=== PATIENT | male | born 1970 | race Caucasian/White ===

== ENCOUNTER 2019-06-25 03:48 | Emergency (ER) | payer SELFPAY ==
[2019-06-25 03:56] VITALS: BP 151/87; PULSE 75; RESP 16; TEMP 36.6; O2SAT 97; BMI 33.3
--- NOTE | 2019-06-25 03:58 | DI.CT.S_ITS ---
PROCEDURE: CT KIDNEY URETER BLADDER (KUB) INDICATIONS: left flank pain, radiates to groin TECHNIQUE: Noncontrast 5 mm thick sections acquired from the diaphragms to the symphysis. 5 mm thick coronal and sagittal reformats were then performed. For radiation dose reduction, the following was used: automated exposure control, adjustment of mA and/or kV according to patient size. COMPARISON: None. FINDINGS: Image quality: Excellent. Lung bases: Lung bases are clear. Heart size is normal. Urinary system: There is a 1-2 mm obstructing stone seen involving the left ureterovesicular junction, as on series 2 image 91 and on series 4 image 42. There is associated mild left-sided hydroureter and hydronephrosis. Minimal left-sided perinephric fat stranding can be seen. No nonobstructing kidney stones are seen. Both kidneys are normal in size. Bladder wall thickness is normal; no calcified bladder stones. Other solid organs: Liver is normal in size. Gallbladder demonstrates no significant noncontrast abnormality. Pancreas is normal in contours. Spleen is normal in size. No adrenal nodules. Peritoneum and bowel: Unenhanced bowel loops demonstrate normal wall thickness and caliber. No free fluid or air. Incidental note is made of a normal-appearing appendix. Diverticulosis is seen, without findings of active diverticulitis. Nodes and vessels: No retroperitoneal or mesenteric adenopathy by size criteria. Aorta and inferior vena cava are normal in caliber. Abdominal wall: No ventral hernias. Pelvis: No free pelvic fluid. No inguinal adenopathy. Bilateral fat containing inguinal hernias are seen, left greater than right. Bones: No suspicious bony lesions. No vertebral body compression fractures. Age-appropriate bony degenerative changes are seen. IMPRESSION: There is a 1-2 mm obstructing stone seen at the left ureterovesicular junction, with associated left-sided hydroureter, hydronephrosis, and perinephric fat stranding. No nonobstructing kidney stones are seen. Incidental note is made of: Normal appendix Mild sigmoid diverticulosis, without findings of active diverticulitis Fat-containing bilateral inguinal hernias, left worse than right. Note: No significant discrepancy from the preliminary report. Dictated by: Gildardo Caba M.D. on 06/25/2019 at 8:59 Approved by: Gildardo Caba M.D. on 06/25/2019 at 9:03
--- NOTE | 2019-06-25 03:59 | ED_ITS ---
HPI - Male Genitourinary General Chief complaint: Urogenital-Male Stated complaint: Lower back pain Time Seen by Provider: 06/25/19 03:53 Source: patient Mode of arrival: Ambulatory Limitations: no limitations History of Present Illness HPI Narrative: This is a 49-year-old male comes emergency department with compla int of left flank pain that is radiating to the left testicle. Patient states that started yesterday it became more intense today. It has been constant. Sort of waxing and waning in intensity. Patient was quite anti uncomfortable when was its maximum intensity. [place] very nauseated. He has not vomited. He has been having normal bowel movements. He has noticed some increase in frequency and nocturia but no dysuria, urgency or hesitancy. Patient has not noticed any hematuria. No fevers. Denies any medical issues, no prior surgeries. No allergies to medications. He does take some nrav-ldb-hapkkdt supplements. Related Data Previous Rx's Medication Instructions Recorded hydrocodone-acetaminophen [Robertson] 1 tab PO Q6H PRN #10 tab 06/25/19 tamsulosin [Flomax] 0.4 mg PO DAILY #7 cap 06/25/19 Allergies Allergy/AdvReac Type Severity Reaction Status Date / Time No Known Drug Allergies Allergy Verified 06/25/19 04:22 Review of Systems Review of Systems ROS Unobtainable: All systems reviewed & are unremarkable except as noted in HPI and below Exam Narrative Exam Narrative: GENERAL: Alert and oriented x three, male in [id number] distress HEENT: Head normocephalic, atraumatic, EOMI, pupils reactive, face symmetric, moist mucous membranes NECK: Supple, full range of motion CARDIOVASCULAR: Regular rate and rhythm without murmurs, rubs or gallops. RESPIRATORY: Breath sounds equal bilaterally, no wheezes rales or rhonchi. ABDOMEN: Soft, nontender. Normoactive bowel sounds all 4 quadrants. No guardin g or rebound, rigidity, no mass : Mild left CVA tenderness EXTREMITIES: Normal range of motion, no clubbing or edema. Neurovascularly intact NEUROLOGICAL: Cranial nerves II through XII grossly intact. Moving all extremities SKIN: Warm, dry, no petechiae, no rashes or lesions. Initial Vital Signs Initial Vital Signs: Vital Signs Temperature 97.8 F 06/25/19 03:56 Pulse Rate 75 06/25/19 03:56 Respiratory Rate 16 06/25/19 03:56 Blood Pressure 151/87 H 06/25/19 03:56 Pulse Oximetry 97 06/25/19 03:56 Course Orders Ordered: ED Orders 06/25/19 03:58 CT kidney ureter bladder (KUB) Stat 06/25/19 04:00 Complete Blood Count AUTO DIFF Stat Comprehensive Metabolic Panel Stat Lipase Stat 06/25/19 05:12 Urinalysis and Microscopic Stat Discontinued Medications Hydrocodone Bitart/Acetaminophen (Vicodin 5/325 Prepack) 1 bottle MISC SEEINSTR ONE Stop: 06/25/19 05:36 Last Admin: 06/25/19 05:41 Dose: 1 bottle Documented by: JAZZY Sodium Chloride (Normal Saline 0.9%) 1,000 mls @ 1,000 mls/hr IV BOLUS ONE Stop: 06/25/19 04:57 Last Infusion: 06/25/19 05:15 Dose: 0 mls/hr Documented by: Admin: 06/25/19 04:13 Dose: 1,000 mls/hr Documented by: MARGUERITE Ketorolac Tromethamine (Toradol) 30 mg IV NOW ONE Stop: 06/25/19 03:59 Last Admin: 06/25/19 04:13 Dose: 30 mg Documented by: MARGUERITE Tamsulosin HCl (Flomax) 0.4 mg PO NOW ONE Stop: 06/25/19 05:36 Last Admin: 06/25/19 05:41 Dose: 0.4 mg Documented by: JAZZY Vital Signs Vital signs: Vital Signs - 8 hr 06/25/19 03:56 06/25/19 05:51 Temperature 97.8 F Pulse Rate 75 76 Respiratory Rate 16 16 Blood Pressure 151/87 H 144/72 H Pulse Oximetry 97 97 MDM - Male Genitourinary Lab Data Attestation: I reviewed the patient's lab results. Result diagrams: 06/25/19 04:00 06/25/19 04:00 Labs: Lab Results 06/25/19 06/25/19 06/25/19 Range/Units 04:00 04:00 05:12 WBC 11.2 H (4.5-11.0) X10^3/uL RBC 5.13 (4.5-5.9) X10^6/uL Hgb 15.9 (13.5-17.5) g/dL Hct 46.4 (41-53) % MCV 90.5 (80-100) fL MCH 30.9 (26-34) PG MCHC 34.2 (30-36) % RDW 14.1 (11.6-14.8) % Plt Count 195 (150-400) X10^3/uL Neut % (Auto) 68.1 (50-75) % Lymph % (Auto) 19.8 L (25-40) % [place] % (Auto) 7.6 (3-14) % Eos % (Auto) 3.7 (2-4) % Baso % (Auto) 0.8 (0-2) % Neut # (Auto) 7600 H (9483-8829) /uL Lymph # (Auto) 2200 (1931-0920) /uL [place] # (Auto) 900 (0-900) /uL Eos # (Auto) 400 (0-450) /uL Baso # (Auto) 100 (0-100) /uL Sodium 143 (137-145) mmol/L Potassium 4.0 (3.4-5.1) mmol/L Chloride 109 H (98-107) mmol/L Carbon Dioxide 24 (22-32) mmol/L BUN 19 (9-20) mg/dL Creatinine 1.10 (0.66-1.25) mg/dL Estimated GFR > 60.0 (>60) mL/min BUN/Creatinine Ratio 17.3 (6-22) Glucose 139 H (70-100) mg/dL Calcium 9.6 (8.4-10.2) mg/dL Total Bilirubin 0.4 (0.2-1.3) mg/dL AST 18 (17-59) IU/L ALT 25 (<50) IU/L Alkaline Phosphatase 56 (38-126) U/L Total Protein 7.1 (6.3-8.2) g/dL Albumin 4.2 (3.5-5.0) g/dL Globulin 2.9 (1.7-4.1) g/dL Albumin/Globulin Ratio 1.4 (1.0-2.8) Lipase 126 (23-300) U/L Urine Color Yellow Urine Appearance Clear Urine pH 5.5 (4.5-8.0) Ur Specific [place] 1.015 (1.000-1.035) Urine Protein Negative (Negative) Urine Glucose (UA) Negative (Negative) g/dL Urine Ketones Negative (NEGATIVE) Urine Occult Blood 3+ H (Negative) Urine Nitrate Negative (Negative) Urine Bilirubin Negative (NEGATIVE) Urine Urobilinogen 0.2 (0.2) E.U./dL Ur Leukocyte Esterase Negative (NEGATIVE) Urine RBC 10-30/hpf H (0-5/HPF) Urine WBC None seen (0-5/HPF) Urine Bacteria None seen (None) Ur Culture Indicated? Cult not indicated Imaging Data CT scan - abdomen: Radiologist's impression: 7 mm obstructing stone at the left ureterovesicular junction. Mild left hydroureteronephrosis. Punctate calcification near the right ureterovesical junction within the bladder lumen. Sigmoid diverticulosis. Fat containing inguinal hernias left larger than right without inflammation. MDM Narrative Medical decision making narrative: Patient's urine shows hematuria but no signs of infection, symptoms and CT or consistent with a left kidney stone. 7 mm at the ureteral vesicular junction. Patient has normal renal function, he has a white count of 11. Patient was feeling much improved after Toradol, states pain is about 3-4/10 at this point. We discussed findings the potential that this stone might not passed based on its size although it is quite close to the bladder. Give him referral for Urology, strict return precautions. Plan for ibuprofen and Robertson for breakthrough pain. patient was also given a dose of Flomax and a prescription for 1 week. We discussed that if they stone does not pass he will need to see Urology possibly for lithotripsy. All questions were answered and patient is comfortable with plan. Discharge Plan Departure Patient Disposition: Home Clinical Impression: Kidney stone Discharge Date/Time: 06/25/19 05:51 Instructions: DI for Kidney Stones Activity Restrictions/Additional Instructions: Follow up with primary care or urology in the several days for recheck. Call for an appointment. Take flomax once daily. You may take ibuprofen up to 800mg every 8 hours for pain. Take pain medication as prescribed. This medication can make you sleepy, do not drive, perform hazardous activities or make any major decisions while taking it. Return to the ER for fevers greater than 100.4F, rapidly worsening abdominal or flank pain, passing out, persistent vomiting, inability to urinate or other new or concerning symptoms. Prescriptions: New tamsulosin [Flomax] 0.4 mg capsule 0.4 mg PO DAILY Qty: 7 RF: 0 hydrocodone-acetaminophen [Robertson] 5-325 mg tablet 1 tab PO Q6H PRN (Reason: pain) Qty: 10 RF: 0 Referrals: Kwasi Molina MD [Non-Staff] -
[2019-06-25] MEDS: KETOROLAC 60 MG/2 ML VIAL 30 MG IV (04:13)
[2019-06-25] MEDS: SODIUM CHLORIDE 0.9% 1,000 ML 1000 ML IV (04:13)
[2019-06-25 04:15] LABS: Add Manual Diff / Slide Review NO; Basophils Absolute Auto 100 /uL (0-100); Basophils Percent Auto 0.8 % (0-2); Eosinophils Absolute Auto 400 /uL (0-450); Eosinophils Percent Auto 3.7 % (2-4); Hematocrit 46.4 % (41-53); Hemoglobin 15.9 g/dL (13.5-17.5); Lymphocytes Absolute Auto 2200 /uL (1100-4500); Lymphocytes Percent Auto 19.8 % (25-40); Mean Corpuscular HGB Conc 34.2 % (30-36); Mean Corpuscular Hemoglobin 30.9 PG (26-34); Mean Corpuscular Volume 90.5 fL (80-100); Monocytes Absolute Auto 900 /uL (0-900); Monocytes Percent Auto 7.6 % (3-14); Neutrophils Absolute Auto 7600 /uL (1500-7000); Neutrophils Percent Auto 68.1 % (50-75); Platelet Count 195 X10^3/uL (150-400); Red Blood Cell Count 5.13 X10^6/uL (4.5-5.9); Red Cell Distribution Width 14.1 % (11.6-14.8); White Blood Cell Count 11.2 X10^3/uL (4.5-11.0)
[2019-06-25 04:24] LABS: Alanine Aminotransferase 25 IU/L (<50); Albumin 4.2 g/dL (3.5-5.0); Albumin Globulin Ratio 1.4 (1.0-2.8); Alkaline Phosphatase 56 U/L (38-126); Aspartate Aminotransferase 18 IU/L (17-59); BUN Creatinine Ratio 17.3 (6-22); Bilirubin Total 0.4 mg/dL (0.2-1.3); Blood Urea Nitrogen 19 mg/dL (9-20); Calcium 9.6 mg/dL (8.4-10.2); Carbon Dioxide 24 mmol/L (22-32); Chloride 109 mmol/L (98-107); Estimated Glomerular Filt Rate > 60.0 mL/min (>60); Globulin 2.9 g/dL (1.7-4.1); Glucose 139 mg/dL (70-100); HEMOLYSIS < 15 (0-50); Lipase 126 U/L (23-300); Sodium 143 mmol/L (137-145); Total Protein 7.1 g/dL (6.3-8.2)
[2019-06-25 05:17] LABS: Bacteria Urine None Seen; WBC Urine None Seen (0-5/HPF)
[2019-06-25 05:18] LABS: Appearance Urine UA CLEAR; Bilirubin Urine UA NEGATIVE (NEGATIVE); Color Urine UA YELLOW; Glucose Urine UA NEGATIVE (Negative); Ketones Urine UA NEGATIVE (NEGATIVE); Leukocyte Esterase Urine UA NEGATIVE (NEGATIVE); Nitrite Urine UA NEGATIVE (Negative); Occult Blood Urine UA 3+ (Negative); Protein Urine UA NEGATIVE (Negative); Specific Gravity Urine UA 1.015 (1.000-1.035); Urobilinogen Urine UA 0.2 E.U./dL (0.2); pH Urine UA 5.5 (4.5-8.0)
[2019-06-25 05:27] LABS: Culture Indicated Urine Cult Not Indicated; RBC Urine 10-30/HPF (0-5/HPF)
[2019-06-25] MEDS: TAMSULOSIN 0.4 MG CAPSULE PO (05:41)
[2019-06-25] MEDS: HYDROCODONE/ACET 5/325 PREPACK 1 BOTTLE MISC (05:41)
[2019-06-25 05:51] VITALS: BP 144/72; PULSE 76; RESP 16; O2SAT 97
== END 2019-06-25 05:51 | disposition home or self-care (01) ==
PROVIDERS: Emergency Provider Emergency Medicine
DX: N20.0 Calculus of kidney (principal)
CPT/HCPCS: 36415; 74176; 80053; 81001; 83690; 85025; 96361; 96374; 99283; 99284; J1885